=== PATIENT | male | born 1985 | race African-American/Black ===

== ENCOUNTER 2024-05-05 13:54 | Outpatient (CLI) | payer OTHER ==
--- NOTE | 2024-05-07 17:38 | MRI Report ---
Hip RT WO CLINICAL HISTORY: 38 years of age, Male, R HIP PAIN. COMPARISON: None Technique: Multisequence, multiplanar MRI of the right hip was performed without contrast. IV CONTRAST: Not given FINDINGS: Labrum: Superior labral tear, extending to the anterior superior labrum. No paralabral cysts. Ligaments: Unremarkable. Tendons: The right iliopsoas, hamstring, and adductor tendons are unremarkable. The right gluteal min imus tendon is unremarkable. Mild peritendinitis of the right gluteal medius. Osseous and cartilaginous structures: Mild degenerative change of the right hip with mild joint space narrowing and mild right femoral head osteophytosis. Sacroiliac joints and spine: Moderate fibrovascular endplate change at L4-5, incompletely evaluated. The visualized sacrum and bilateral sacral joint are unremarkable. Mild subchondral marrow edema at t he left femoral head and neck junction, favoring degenerative. No acute fracture of the left hip. Miscellaneous: The visualized musculature demonstrates normal signal and morphology without evidence of strain or tear. IMPRESSION: 1.Labral tear of the right hip. 2.Mild degenerative change of the right hip. 3.Mild peritendinitis of the right gluteal medius. 4.Moderate fibrovascular endplate change at L4-5, incompletely evaluated. 5.Mild subchondral marrow edema at the left femoral head and neck junction, favoring degenerative. Reviewed by: Bouchra Peña MD on 05/07/2024 5:37 PM PDT Approved by: Bouchra Peña MD on 05/07/2024 5:37 PM PDT Station ID: [id number]
== END 2024-05-05 13:55 | disposition home or self-care (01) ==
LOC: DI 13:54
PROVIDERS: ATTEND Student in an Organized Health Care Education/Training Program
DX: S73.191A Other sprain of right hip, initial encounter (principal); M16.11 Unilateral primary osteoarthritis, right hip; M76.891 Other specified enthesopathies of right lower limb, excluding foot